=== PATIENT | male | born 1995 | race Caucasian/White ===

== ENCOUNTER → 2025-06-02 15:10 | Outpatient (REF) | payer MEDICARE, OTHER, SELFPAY | LOC: HWRAD 15:10 | PROVIDERS: ATTENDING PHYSICIAN Nurse Practitioner Family | DX: M25.562 Pain in left knee (principal); L03.90 Cellulitis, unspecified | CPT/HCPCS: 73564 ==

== ENCOUNTER 2025-06-08 19:59 | Inpatient (IN) | payer MEDICARE, OTHER, SELFPAY ==
[2025-06-08 16:17] VITALS: BP 155/97
[2025-06-08 16:35] LABS: Hematocrit 39.9 % (39.0-52.0); Hemoglobin 13.4 g/dL (13.0-18.0); Mean Corp Hgb Conc. 33.6 g/dL (33.0-37.0); Mean Corpuscular Volume 85.3 fL (80.0-94.0); Nucleated Red Blood Cells % 0 % (-); Platelet Count 318 10^3/uL (130-400); Red Cell Dist. Width 13.0 % (11.5-14.5)
[2025-06-08 16:49] LABS: ALT (SGPT) 53 U/L (0-50); AST (SGOT) 36 U/L (17-59); Albumin 4.0 g/dl (3.5-5.0); Alkaline Phosphatase 57 U/L (38-126); Blood Urea Nitrogen 11 mg/dl (9-20); Calcium 9.5 mg/dl (8.4-10.2); Carbon Dioxide 27 mmol/L (22-30); Chloride 106 mmol/L (98-107); Glucose 112 mg/dl (70-99); Potassium 4.1 mmol/L (3.5-5.1); Sodium 139 mmol/L (135-145); Total Protein 6.9 g/dl (6.3-8.2); eGFR > 60.00
[2025-06-08 18:20] VITALS: BP 136/88
--- NOTE | 2025-06-08 18:30 | ED.GENMED ---
History of Present Illness
General
Chief Complaint: DVT/Possible Blood Clot
Source: patient and family
Exam Limitations: none
Time Seen by Provider: 06/08/25 18:16
Nursing documentation reviewed up to this point in time: agreed with
History of Present Illness
History of Present Illness:
30-year-old male with a past medical history of cerebral palsy, prior right AKA who presents to the emergency room with his family for evaluation of left leg pain and swelling. Patient reports symptoms have been progressive over the past 7 to 10
days. Sounds like he has been on antibiotics for presumed cellulitis of the leg (he has apparently had cellulitis in this leg before) but symptoms were actually worsening which prompted ER visit today. In addition to the swelling, redness and pain
in the left leg he has also experienced some increased shortness of breath recently. He denies any chest pain. He denies any other acute issues. He does have history of 'blood clot in his right leg' after a complicated surgery that ultimately
required amputation but family says that he had extensive hypercoagulable workup at the time and was told that he did not have any propensity for clots and is not on any blood thinners.
Past History
Past History
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
ED Past Surgical History: Orthopedic (R AKA s/p tendon release surgery where [employer] was severed in 1997 at [place])
Social History
Tobacco: Non-smoker
Review of Systems
Review of Systems
All Other Systems: ROS reviewed and negative except as documented in HPI and ROS
Constitutional: Denies fever
Respiratory: Reports trouble breathing
Cardiac: Denies chest pain
ABD/GI: Denies abdominal pain, bloody stools or black stools
: Denies flank pain
Musculoskeletal: Reports muscle pain and edema
Neurological: Denies dizzy or headache
Phy Exam
Physical Exam
Physical Exam:
General: Awake, alert, oriented x3; no acute distress
Head: Normocephalic, atraumatic
Eyes: Conjunctiva normal
Throat: Airway intact, handling secretions
Neck: Trachea midline, supple without meningismus
Lungs: Clear to auscultation bilaterally, no wheezing, rales, rhonchi
Heart: Tachycardia with regular rhythm, no murmurs, gallops, or rubs
Abd: Soft, non distended, nontender
Skin: Patient has erythema of the entire left lower leg, most notably in the left thigh which is somewhat mottled and purpleish
Extremities: Patient has right AKA; left lower extremity edematous, discolored, warm to the touch, diffusely tender; palpable distal pulse in the leg (pictured below)
Scores
Heart Failure Risk
Heart Failure Risk Score: Not Applicable
Heart Score for Chest Pain Patients
STEMI patient?: Not applicable
Withdrawal Assessment of Alcohol
Withdrawal Assessment Completed?: Not applicable
Course
Orders/Labs/Results
Orders:
Orders
06/08/25 16:16
Periph Venous Lwr Ext Left US [US Periph Venous LOWER Ext LT] Urgent
Comment:
Reason For Exam: swelling
06/08/25 16:25
Complete Blood Count/With Diff Urgent
Comprehensive Metabolic Panel Urgent
06/08/25 18:11
Electrocardiogram (*1) Urgent
Reason for Study: Bradycardia / Tachycardia
EKG- Treatment ONCE
Vital Signs- Treatment ONCE
Frequency: Once
Comment: WEIGHT
06/08/25 18:24
CT Pe/abd/pel W Urgent
Comment:
Reason For Exam: sob, large DVT
06/08/25 18:29
Consult Vascular Surgery [Vascular Surgery Consult] Urgent
Consulting Provider: Cali Burnett
Was physician already notified: Yes
06/08/25 18:33
PTT Urgent
Prothrombin Time Urgent
06/08/25 18:34
Heparin 5,100 units IV NOW STA
Nursing to Place Non Medication Order As Directed
Physician Order: PTT 6 hours after initial start of Heparin infusion
06/08/25 18:45
Heparin 41110 Units/250 ml 25,000 units in 250 ml IV PER PROTOCOL
Weight to be used for heparin protocol in kilograms (kg):: 63.503
Protocol:: DVT/PE
PTT Goal Range to be used:: PTT 73 to 111 seconds
Order type:: Initial
INITIAL Infusion Dose (UNITS/KG/hr) & then follow protocol:: 18 units/kg/hr
Infusion Dose in UNITS/hr & then follow protocol (UNITS/hr):: 1,100
INFUSION RATE in mL/hr & then follow protocol (mL/hr):: 11
For DVT/PE algorithm, re-bolus for low PTT?: Yes
PTT less than or equal to 64 seconds:: Re-bolus 80 units/kg (max 10,000units). Increase by 300 units/hr
(+ 3mL/hr)
PTT 64.1 to 72.9 seconds:: Re-bolus 40 units/kg (max 5,000 units). Increase by 100 units/hr
(+ 1mL/hr)
PTT 73 to 111 seconds:: Target Range. No change in rate.
PTT 111.1 to 130.9 seconds:: Decrease rate by 100 units/hr (- 1 mL/hr)
PTT 131 to 199.9 seconds:: HOLD for 1 hr. Then decrease by 200 units/hr (- 2mL/hr)
PTT greater than or equal to 200 seconds:: HOLD for 2 hrs & Notify Provider. Then decrease by 300 units/hr
(- 3mL/hr)
Lab follow-up:: Each change, PTT q6h until 2 consecutive are therapeutic. Then
PTT daily.
06/08/25 19:04
Heparin 5,100 units IV PRN PRN
06/08/25 19:05
Heparin 2,500 units IV PRN PRN
06/08/25 19:18
Admit/Transfer Patient As Directed
Co-Sign Provider:
Level of Care: Inpatient admission
Assign to:: Medical/Surgical
Physician / Group: shelbie
Diagnosis: DVT
Reason for Hospitalization: extensive LLE DVT
Expected length of stay greater than two midnights?: Yes
ELOS- Estimated Length of Stay in days: 2
I certify the patient meets the requirements for IP care: Yes
PRN Pain Medication Management As Directed
May give lesser potent ordered pain med per pt: Yes
preference::
Protocol:: Medication orders for pain may be administered in a
manner that supports deferring to patient preference
when the pt is:
- Requesting an ordered lesser potent pain medication.
Least to most potent pain medications are defined
as: acetaminophen < NSAID < tramadol < opioids
(morphine, oxycodone, hydromorphone).
- Requesting a lesser dose of the same medication IF
ORDERED.
- Requesting a less intrusive route of administration
if both routes are prescribed by the provider (PO <
IV).
06/08/25 19:19
Code Status As Directed
Resuscitation Status: Full Code
Abnormal Lab Results
06/08/25
16:25
RBC 4.68 L 10^6/uL
(4.70-6.10)
Absolute Monos (auto) 0.8 H 10^3/uL
(0.1-0.6)
Lymphocytes % 16.9 L %
(20.5-51.1)
Monocytes % 9.5 H %
(1.7-9.3)
Glucose 112 H mg/dl
(70-99)
ALT 53 H U/L
(0-50)
06/08/25 16:25
06/08/25 16:25
Vital Signs
Initial and Last Documented VS:
Initial Vital Signs
Temp Pulse Resp BP Pulse Ox
36.6 C 121 18 155/97 97
06/08/25 16:17 06/08/25 16:17 06/08/25 16:17 06/08/25 16:17 06/08/25 16:17
Last Documented Vital Signs
Temp Pulse Resp BP Pulse Ox
36.6 C 123 25 118/86 97
06/08/25 16:17 06/08/25 19:15 06/08/25 19:15 06/08/25 19:15 06/08/25 18:34
MDM/Problems Addressed
Differential Diagnosis Includes:
Leg swelling: DVT, cellulitis, vasculitis
MDM/Problems Addressed:
30-year-old male with history as noted presents for evaluation of left leg pain and swelling progressive over the past 7 to 10 days. Has also had some shortness of breath recently. He is hypertensive and tachycardic but not tachypneic or hypoxic.
Physical exam is as above. He had labs and imaging done in triage including a CBC and a CMP which showed no clinically significant abnormalities. His ultrasound of the left lower extremity unfortunately showed extensive left lower extremity DVT
extending all the way to the iliac veins. Patient was immediately brought back to her room and placed on surveillance monitor, IV access established. Given his reported symptom of shortness of breath and marked tachycardia we will send for a CT PE as
well as a CT venogram to better visualize proximal vasculature in the pelvis. Case was discussed with vascular surgery regarding extensive DVT, plan for OR tomorrow for thrombolysis, n.p.o. at midnight. Will start empirically on heparin infusion
pending imaging. Will plan for admission pending CT. Discussed at length with patient and family regarding diagnosis and treatment plan
CT somewhat limited but no clear PE. CT venogram does show extensive proximal clot. N.p.o. at midnight for vascular consultation in the morning. Heparin in progress. Patient stable on reassessment. Discussed with hospitalist for admission.
*Radiology
Radiology exam reviewed: radiology read reviewed
*Pulse Oximetry
SaO2: 97
Oxygen Mode of Delivery: Room air
Patient hypoxic: no (97%)
*EKG
Interpreted by ED Provider?: Yes
Heart Rate: 121
Rate: tachycardiac
Rhythm: sinus and sinus tachycardia
[place]: normal axis
Interval: normal interval
QRS Pattern: normal QRS
Ischemia: no ischemia
*Critical Care Note
Total Time (30-74mins, 75-104mins- exclusive of procedures): 32
comment:
Critical care statement: A total of 32 minutes of critical care time was provided for this patient. This includes management of unstable vital signs, evaluation of the patient at bedside, frequent reassessment, discussion with
consultants/hospitalist, and review of pertinent medical records. This time was separate from time utilized to perform any aforementioned documented procedures
Data Reviewed
Review of Other/Old Records Reveals: Labs and Records
Source: patient and family
Patient Management
Discussion with other providers: Hospitalist (Discussed with hospitalist) and Computer Systems Design Analyst (Discussed with vascular surgery)
Escalation/DeEscalation of care consider admission/obs:
Admission indicated
ED Attending Note
-
Portions of this chart may have been created with voice recognition software.� Occasional wrong word or��sound alike� substitutions may have occurred due to the inherent limitations of voice recognition software.
Discharge Plan
Departure
Patient Disposition: Admit
Date of Disposition: 06/08/25
Time of Disposition: 19:12
Admit to doctor: Shelbie
Presentation/result/management discussed w/ accepting MD/DO: Hospitalist
Discharge Problem:
DVT (deep venous thrombosis)
Interventions
Interventions:
*Risk Screen - Suicide Last Done: 06/08/25 16:17
*General Assessment Last Done: 06/08/25 16:17
*Neglect/Abuse Screening Last Done: 06/08/25 18:36
*ED- Fall Risk Assessment Last Done: 06/08/25 16:17
*ED COVID-19 Vaccine History Last Done: 06/08/25 16:17
*ED Influenza Vaccine History Last Done: 06/08/25 16:17
ED- Cardiac Assessment Last Done: 06/08/25 18:34
ED- Pulmonary Assessment Last Done: 06/08/25 18:34
ED-Peripheral Vascular Assessment Last Done: 06/08/25 18:35
ED-Skin Assessment Last Done: 06/08/25 18:35
[2025-06-08 18:31] VITALS: BMI 28.3
[2025-06-08 18:56] LABS: INR 1.05; PT 14.2 Sec (11.4-14.6)
[2025-06-08 18:57] LABS: APTT 28.4 Sec (23.4-35.0)
[2025-06-08] MEDS: HEPARIN 5100 UNITS IV (19:09)
[2025-06-08] MEDS: HEPARIN 25000 UNITS/250 ML IV (19:10)
[2025-06-08 19:15] VITALS: BP 118/86
--- NOTE | 2025-06-08 19:16 | HPS.HSE ---
Family Physician
-
Family Physician: * NONE
Chief Complaint
-
Leg swelling
History of Present Illness
This is a 30-year-old male with past medical history significant for cerebral palsy, bipolar disorder, status post right above-knee amputation who presents to the emergency department with swelling and edema to left lower extremity.
Family reported that the patient developed a cellulitis of the left knee about 2 weeks ago. He started antibiotics 1 week ago. Despite antibiotics family reported increased swelling in the left lower extremity. Did not read the patient has had
decreased movement (they reported that he has been very sedentary since the cellulitis). Usually ambulates with a prosthesis but patient has not been using it recently.
He had a friend blood clot during first year of life which resulted in amputation. He had a genetic testing at that time and was negative. He has not had any clotting episodes since then.
Intermittent leg pain patient was afebrile, blood pressure was 136/78 with a pulse rate of 120 and was satting 97% on room air. ECG showed sinus tachycardia at rate of 121.
CBC was unremarkable, electrolyte BUN/creatinine were all normal.
Patient peripheral ultrasound showing extensive left lower extremity DVT occlusive. CT PE was negative. CT venogram of the abdomen pelvis was also negative.
Medical History
Past Medical History
Past Medical History: Reports Other
Additional Past Medical History:
Cerebral palsy
Hypothyroid�recovered
astigmatism
Past Surgical History: Reports Orthopedic (Right above-knee amputation) and Other
Additional Past Surgical History:
Hernia repair
Okay ectomy
Abductor tendon release with femoral artery cut
Social History
Tobacco: Non-smoker
Alcohol: None
Drug: None
Personal: Single
Living: With Family
Employment: Disabled
Family History
Family History: Not pertinent
Allergies / Home Medications
Allergies reflects when Allergies were last updated in [employer].
Home Medications with original date entered in [employer]
Allergy/Medication List:
Allergies
Allergy/AdvReac Type Severity Reaction Status Date / Time
No Known Allergies Allergy Verified 06/08/25 16:19
Home Medications
cephalexin 500 mg capsule 500 mg PO QID 06/08/25
cholecalciferol (vitamin D3) 25 mcg (1,000 unit) tablet (Vitamin D3) 25 mcg PO DAILY 06/08/25
divalproex 250 mg tablet,delayed release (Depakote) 250 mg PO HS 06/08/25
ibuprofen 400 mg tablet 400 mg PO DAILYPRN PRN mild pain 06/08/25
lorazepam 0.5 mg tablet 0.5 mg PO Q48H 06/08/25
lorazepam 0.5 mg tablet 1 mg PO HS 06/08/25
paliperidone 3 mg tablet,extended release 24 hr 6 mg PO HS 06/08/25
therapeutic multivitamin 1 tab PO DAILY 06/08/25
Review of Systems
-
Constitutional: Reports No Symptoms
EENT: Reports No Symptoms
Respiratory: Reports No Symptoms
Cardiac: Reports No Symptoms
Abdomen/GI: Reports No Symptoms
: Reports No Symptoms
Musculoskeletal: Reports Joint Swelling and Edema
Skin: Reports No Symptoms
Neurological: Reports No Symptoms
Endocrine: Reports No Symptoms
Hematologic/Lymphatic: Reports No Symptoms
Psych: Reports No Symptoms
Physical Exam
Vital Signs
Vital Signs
Temp Pulse Resp BP Pulse Ox
97.9 F 126 16 136/88 97
06/08/25 16:17 06/08/25 18:21 06/08/25 18:31 06/08/25 18:20 06/08/25 18:34
Physical Exam
General: Well Developed, Well Nourished and No Apparent Distress
HEENT: NormoCephalic, Moist mucous membranes and Atraumatic
Respiratory: Clear
Cardiac: S1/S2, Regular Rhythm and Tachycardia; No Murmur or Rub
GI: Soft, Non Tender, Non Distended and Normal Bowel Sounds; No Organomegaly
Rectal: Deferred by Provider
Musculoskeletal: No Clubbing, No Cyanosis, Edema, Left Lower Extremity and Other (Right AKA)
Skin: No Rash
Neuro: Nonfocal/grossly intact
Laboratory Results
-
06/08/25 16:25
06/08/25 16:25
Laboratory Results
PT 14.2 Sec (11.4-14.6) 06/08/25 18:33
INR 1.05 06/08/25 18:33
APTT 28.4 Sec (23.4-35.0) 06/08/25 18:33
Total Bilirubin 0.7 mg/dl (0.2-1.3) 06/08/25 16:25
AST 36 U/L (17-59) 06/08/25 16:25
ALT 53 U/L (0-50) H 06/08/25 16:25
Alkaline Phosphatase 57 U/L (38-126) 06/08/25 16:25
Data Reviewed
-
CT Scan: Report Reviewed by me
Ultrasound: Report Reviewed by me
Medical Tests (Nuc Med, Echo, EKG etc): Image Personally Visualized and interpreted
Lab Data: Labs Reviewed by me
Old Records: Reviewed
Impression/Plan
-
IMPRESSION:
30-year-old with past medical history significant for cerebral palsy and bipolar disorder who presents to the emergency department with swelling of the left lower extremity in the setting of being treated for cellulitis. Parents report that patient
has been severely immobile during the last 1 to 2 weeks due to cellulitis of the left knee. Father did have a history of DVT/PE. Patient had a history of clots of the right femoral artery status post amputation. Patient reportedly had genetic
testing at a time of which was negative.
PLAN:
Extensive DVT -occlusive DVT with edema. Pulses were intact. No PE. No intraabdominal thrombus.
-Admit to [facility]
-N.p.o. after midnight
-Continue heparin drip
-Pain control
-Vascular surgery consulted and taken patient to the OR in a.m.
-History of prior negative workup for hypercoagulable state
-Suspect provoked in the setting of the cellulitis and severe immobilization with known amputation on the right. Likely will need indefinite anticoagulation
-Continue Keflex
Cerebral palsy
- Continue divalproex
-Continue paliperidone
-Continue lorazepam
CODE STATUS�full code
[2025-06-08 20:00] VITALS: BP 129/81
[2025-06-08 21:04] VITALS: BP 148/90; BMI 29.1
[2025-06-08] MEDS: ATIVAN 1 MG PO (21:51)
[2025-06-08] MEDS: DEPAKOTE (12 HR RELEASE) 250 MG PO (21:51)
[2025-06-08] MEDS: KEFLEX 500 MG PO (21:51)
[2025-06-08 23:08] VITALS: BP 130/87
[2025-06-08] MEDS: NON-FORMULARY ITEM 6 MG PO (23:28)
[2025-06-09 01:35] LABS: APTT 68.5 Sec (23.4-35.0)
[2025-06-09] MEDS: HEPARIN 2500 UNITS IV (01:48)
--- NOTE | 2025-06-09 07:14 | W.PN.HOSP.TC ---
Addendum entered and electronically signed by Angi Adam MD 06/09/25 14:06:
Seen and examined the patient independently, plan formulated together agree with residents plan.
30-year-old with history of cerebral palsy, bipolar disorder, history of right AKA admitted with swelling and edema of left lower extremity. He developed cellulitis 2 weeks ago and was started on antibiotics despite that swelling increased.. Has
been sedentary since cellulitis started usually ambulates with a prosthesis.
CT abdomen and pelvis-evaluation for PE is significantly limited. No gross evidence of PE. Trace amount of posterior pleural fluid bilaterally. Mild dependent atelectasis in the posterior lungs. Thrombus in the left common femoral, proximal
femoral, profunda femoris veins. Thrombus also extends into the left external iliac vein and into the left internal iliac vein. There is severely atrophic left common iliac vein as well as IVC. Severely artery right take right common femoral,
external iliac and common iliac veins. Normal caliber of the IVC at the level of renal veins no thrombus. Urinary bladder is elongated. Seminal vesicles are enlarged.
Ultrasound-extensive DVT of the left lower extremity and extensive thrombus in the left external iliac vein
EKG-sinus tachycardia
Patient was awake and alert
Cardiovascular system S1-S2 appreciated
Chest clear to auscultation
Abdomen soft and nontender
Right BKA
Extremity Wilfredo bandage
# Extensive left lower extremity DVT
Currently on heparin drip, will transition to Lovenox
Vascular surgery evaluated-no surgery secondary to complex anatomy
Likely provoked in the setting of immobilization and cellulitis
Will need outpatient follow-up with hematology oncology also
Continue Keflex to treat cellulitis
Eventual switch to NOACs
Case management to check pricing for Eliquis/Xarelto.
Discussed about Coumadin and NOACs with mother she prefers NOACs.
# Cerebral palsy, born at 26 weeks
# History of right BKA at age 28 months for femoral artery injury while attempting tendon release for CP, with attempted repair but failed
# Kyphosis of the lower thoracic spine
# Bipolar disease/anxiety-continue Depakote, lorazepam, paliperidone
# Ambulatory dysfunction and uses prosthesis and a special walker
# Full code
Discussed with nursing
D/W Mom at bed side. Mom asking a bathroom with wider door to get his walker through. Communicated with staff.
Part of this note was created using voice recognition system. Occasional wrong word or��sound alike� substitutions may have inadvertently occurred due to the inherent limitations of voice recognition software. If noted kindly bring it to my
attention for correction.
Original Note:
Today's Communication/Plan
-
STOP Heparin
START Lovenox
Assessment / Plan
Assessment / Plan
Assessment:
Plan:
Extensive Occlusive DVT of the left lower extremity
-As noted on Peripheral Vascular Ultrasound on 06/08: Extensive deep venous thrombosis of the left lower extremity as described. There is also extension of occlusive thrombus in the visualized left external iliac vein.
-CT Abdomen/Pelvis on 06/08: Evaluation for pulmonary embolism is significantly limited by respiratory motion artifact. Even evaluation of the central pulmonary arteries is limited, with no gross evidence for embolism. Thrombus involving the left
common femoral, proximal femoral, and profunda femoris veins. Thrombus also extends into the left external iliac vein and into the left internal iliac vein. There is a severely atrophic left common iliac vein as well as the infrarenal IVC. Severely
atretic right common femoral, external iliac, and common iliac veins. Normal caliber of the IVC at the level the renal veins and above, with no evidence for thrombus. Geographic region of decreased density involving the anterior medial segment of
the liver on portal venous phase images, most likely a benign perfusion anomaly. No CT evidence for branch portal vein thrombus.
-Vascular surgery consulted by the admitting team, at this time no plans for surgical intervention
-Resumed Diet today
-STOP Heparin, start Lovenox 65mg BID with plans to switch to oral anticoagulation. Placed consult to CM to danny Morgan
-Per prior notes, it seems patient may have had a hypercoaguable workup in childhood. Would recommend follow up with hematology outpatient given new extensive DVT.
Cerebral Palsy
-CT of the Abdomen/Pelvis on 06/08: Urinary bladder is elongated in the craniocaudal dimension and the urinary bladder is in the anterior pelvis. Seminal vesicles are enlarged. These are likely sequela of chronic cerebral palsy.
-Continue outpatient follow up
Bipolar Disorder
-Continue outpatient follow up
-Continue home meds (Depakote, Lorazepam, Paliperidone)
S/p Right [id number]
-In childhood due to blood clot, patient with history of negative workup for hypercoagulable state
Anticipated Discharge: 24 - 48 hours
Subjective/Interval History
-
Date of Service: June 09, 2025
Patient was resting in his room when I arrived. He states he has not felt any pain in his left leg recently, and does not remember having any fevers, chills, or shortness of breath. He was curious if his parents would be stopping by later today to
visit him. He had no questions, concerns, or complaints at this time.
Objective Data
-
Labs:
Laboratory Results
06/09/25 06/09/25 06/09/25
01:12 06:00 08:00
WBC Pending
Hgb Pending
Hct Pending
Plt Count Pending
APTT 68.5 H Pending
Sodium Pending
Potassium Pending
Chloride Pending
Carbon Dioxide Pending
BUN Pending
Creatinine Pending
Glucose Pending
Calcium Pending
Vital Signs:
Vital Signs
Temp Pulse Resp BP Pulse Ox
99.1 F 118 18 130/87 98
06/08/25 23:08 06/08/25 23:08 06/08/25 23:08 06/08/25 23:08 06/08/25 23:08
Review of Systems
-
History Source: Patient
Constitutional: Denies Fever or Chills
Respiratory: Denies Trouble Breathing
Cardiac: Denies Chest Pain
Musculoskeletal: Denies Joint Pain or Muscle Pain
Physical Exam
-
General: Well Developed, Well Nourished, No Apparent Distress and Comfortable
HEENT: Normocephalic and Atraumatic
Respiratory: Clear to Auscultation
Cardiac: Regular Rhythm and S1/S2
Musculoskeletal: Other (Right knee status post above the knee amputation with well healed surgical scar, no signs of infection. )
Skin: Warm and Dry
Neuro: Awake, Alert and Oriented
Psych: Calm
[2025-06-09 08:04] VITALS: BP 130/80
[2025-06-09] MEDS: VITAMIN D3 (cholecalciferol) 25 MCG PO (08:15)
[2025-06-09] MEDS: KEFLEX 500 MG PO ×4 (08:15→21:29)
[2025-06-09 08:39] LABS: APTT 89.5 Sec (23.4-35.0)
[2025-06-09 08:48] LABS: Hematocrit 37.3 % (39.0-52.0); Hemoglobin 12.5 g/dL (13.0-18.0); Mean Corp Hgb Conc. 33.5 g/dL (33.0-37.0); Mean Corpuscular Volume 85.4 fL (80.0-94.0); Platelet Count 313 10^3/uL (130-400); Red Cell Dist. Width 12.9 % (11.5-14.5)
--- NOTE | 2025-06-09 09:12 | CON.VAS ---
Consultation
Consultation Request
Date/Time Consultation Performed: 06/09/2025 8 AM
Performing Provider: Lex
Reason for Consultation: DVT
Medical History
-
Chief Complaint: Left leg swelling/redness
History of Present Illness:
30-year-old male with past medical history significant for cerebral palsy, bipolar disorder, right AKA in 1995 who presented to the emergency room on 06/08/2025 for 2 weeks of left knee cellulitis. 1 week ago he was put on antibiotics by his PCP
despite this the swelling and redness persisted leading to this admission. Venous ultrasound in the emergency room suggests left lower extremity DVT. CTA PE study negative. CT venogram suggests 'thrombus involving the left common femoral,
proximal femoral, and profunda femoris veins. Thrombus also extends into the left external iliac vein and into the left internal iliac vein. There is a severely atrophic left common iliac vein as well as the infrarenal IVC. Severely atretic right
common femoral, external iliac, and common iliac veins. Normal caliber of the IVC at the level the renal veins and above, with no evidence for thrombus.'
Patient had DVT at 2 years old following surgical procedure. No clotting episodes since then. Had genetic testing at that time which was negative. Denies recent travel.
Vascular consult for evaluation of DVT. Patient seen at bedside this a.m. with Dr. Burnett.
Past Medical History
Past Medical History: Psychiatric (Bipolar, schizophrenia) and Other (Cerebral palsy, hypothyroid, astigmatism)
Past Surgical History: Orthopedic (Right AKA 1995, hernia repair)
Social History
Tobacco: Non-Smoker
Alcohol: None
Drug: None
Personal: Single
Living: With Family
Employment: Disabled
Family History
Family History: Reviewed & Not Pertinent
Allergies / Home Medications
Allergy/AdvReac Type Severity Reaction Status Date / Time
No Known Allergies Allergy Verified 06/08/25 16:19
�Medication �Instructions �Recorded �Confirmed �Type
cephalexin 500 mg capsule 500 mg PO QID Infection 06/08/25 06/08/25 History
cholecalciferol (vitamin D3) 25 25 mcg PO DAILY Supplement 06/08/25 06/08/25 History
mcg (1,000 unit) tablet (Vitamin
D3)
divalproex 250 mg tablet,delayed 250 mg PO HS Seizures 06/08/25 06/08/25 History
release (Depakote)
ibuprofen 400 mg tablet 400 mg PO DAILYPRN PRN mild pain 06/08/25 06/08/25 History
lorazepam 0.5 mg tablet 0.5 mg PO Q48H Mental 06/08/25 06/08/25 History
Health/Anxiety
lorazepam 0.5 mg tablet 1 mg PO HS Mental Health/Anxiety 06/08/25 06/08/25 History
paliperidone 3 mg tablet,extended 6 mg PO HS Mental Health/Anxiety 06/08/25 06/08/25 History
release 24 hr
therapeutic multivitamin 1 tab PO DAILY Supplement 06/08/25 06/08/25 History
Review of Systems
-
History Source: Patient
All other systems: Negative unless noted
Constitutional: Reports No Symptoms
EENT: Reports No Symptoms
Respiratory: Reports No Symptoms
Cardiac: Reports No Symptoms
Vascular: Reports Leg Pain / Claudication
Abdomen/GI: Reports No Symptoms
: Reports No Symptoms
Musculoskeletal: Reports Muscle Stiffness and Edema
Skin: Reports Other (Left lower extremity redness)
Neurological: Reports No Symptoms
Physical Exam
Vital Signs
Temp Pulse Resp BP Pulse Ox
98.4 F 103 16 130/80 94
06/09/25 08:04 06/09/25 08:04 06/09/25 08:04 06/09/25 08:04 06/09/25 08:04
Lab Results
06/09/25 07:52
Physical Exam
General: No Apparent Distress
HEENT: Normocephalic and Atraumatic
Respiratory: Non Labored Respirations
Cardiac: Negative JVD
GI: Soft
Musculoskeletal: No Clubbing, No Cyanosis and Edema (Left lower extremity)
Skin: Warm and Other (Erythema to the left thigh)
Neuro: Awake, Alert and Oriented
Psych: Calm
Assessment / Plan
-
30-year-old male here with DVT
Plan:
No vascular intervention required at this time
Agree with heparin, and eventual p.o. anticoagulation at DC
Wilfredo wrap/compression and elevation as tolerated
Data Reviewed
-
CT Scan: Discussed with Patient
Ultrasound: Discussed with Patient
Labs: Labs Reviewed by me
[2025-06-09 09:34] LABS: Blood Urea Nitrogen 10 mg/dl (9-20); Calcium 9.1 mg/dl (8.4-10.2); Carbon Dioxide 27 mmol/L (22-30); Chloride 107 mmol/L (98-107); Estimated Creatinine Clearance 121 ml/min; Glucose 95 mg/dl (70-99); Magnesium 2.1 mg/dl (1.6-2.3); Potassium 4.2 mmol/L (3.5-5.1); Sodium 140 mmol/L (135-145); eGFR > 60.00
--- NOTE | 2025-06-09 09:38 | W.PN.UPDATE ---
Update Note
Progress Note Update
Seen and evaluated with [facility]. Full consultation to follow. Briefly a 30-year-old male with history of CP, schizophrenia, right [id number] amputation at age of 28 months (underwent tendon release for CP, femoral artery and vein injury noted,
attempted repair but failed). Now patient with at least 10 days of left lower extremity redness and some discomfort. Although currently he denies any pain. Per his father who is at the bedside and relayed some of the history, it began as a
cellulitic process. Patient was started on antibiotics by his primary care doctor. Of note the symptoms started greater than 10 days ago per his father. Then over the last couple days noted increasing swelling. The father was attuned to the
symptoms as he had suffered a PE himself in the past. (Provoked PE following a period when he was mostly nonambulatory due to significant back related issues and spinal injections). Patient's father notes that he had genetic testing which was
negative for any hypercoagulable disorder. Patient has never had prior venous thromboses that he is aware of. His ambulation is somewhat limited due to the right AKA and CP status. However he does somewhat crawl around.
As noted patient is without any complaints of pain or weakness currently in his leg.
On exam/he is awake and alert. Breathing is unlabored. Left lower extremity thigh and calf are swollen, but soft. Compartments all soft. No phlegmasia. Foot is warm.
Duplex reviewed. Extensive left lower extremity DVT including occlusive thrombus in the common femoral vein extending into the external iliac vein.
CT venogram reviewed the images personally myself. He has thrombus through the external iliac vein. However his common iliac vein and IVC are what appeared to be congenitally atretic. The external iliac drains into the internal iliac vein which
is thrombosed as well. There does appear to be another collateral from the external iliac vein more proximally that is completely flattened or atretic in and of itself and seems to connect then to a larger collateral that does opacify but is very
tortuous and then drains into the left renal vein.
Plan/ Acute/subacute left lower extremity extensive DVT including iliofemoral component. However, complex anatomy including atretic common iliac vein and IVC (see my note of CT interpretation above). Discussed with patient and his father therefore
that thrombolysis/mechanical thrombectomy may be significantly limited and may be more harmful in this setting as there is not a good outflow pathway to reestablish. Discussed that the symptoms are relatively mild currently. No phlegmasia. Based
on all this, I would recommend conservative management with anticoagulation and compression as opposed to invasive therapy (mainly driven by the anatomy findings). Patient and his father were appreciative. We will sign off. Please call with
questions.
[2025-06-09 10:02] LABS: ALT (SGPT) 59 U/L (0-50); AST (SGOT) 32 U/L (17-59); Albumin 3.6 g/dl (3.5-5.0); Alkaline Phosphatase 56 U/L (38-126); Total Protein 6.1 g/dl (6.3-8.2)
[2025-06-09] MEDS: LOVENOX 70 MG SC ×2 (12:16→23:02)
[2025-06-09 15:09] VITALS: BP 123/82
--- NOTE | 2025-06-09 17:19 | CM ---
Patient seen at bedside with his dad Good and patient's twin sister Coreen
IA completed
Dx: LLE DVT
PMH: cerebral palsy, bipolar disorder, right above-knee amputation at age 28 mos
Patient lives with his parents and twin sister in a multi-story home, resides in 1st floor addition, with bedroom and handicapped bathroom.
PLOF: uses a specialized walker, has braces, prostetic
DME: Wheelchair, specialized walker
has had therapy as a child, denies SNF
confirmed insurance with dad
CM consult for pricing of Eliquis - Called Pharmacist Juan at [facility] and he gave CM [employer] # - CM unable to get through to [employer] (member #[id number]) - dad has an osmel on phone medicare.gov with patient's rx & stated that
Eliquis would cost approximately $50/mo - tt hospitalist
PCP: Brian Walls [facility]
Pharmacy: [facility]
PLAN: Home with family, no needs
[2025-06-09] MEDS: NON-FORMULARY ITEM 6 MG PO (20:30)
[2025-06-09] MEDS: ATIVAN 1 MG PO (21:29)
[2025-06-09] MEDS: DEPAKOTE (12 HR RELEASE) 250 MG PO (21:29)
[2025-06-09 23:00] VITALS: BP 125/86
--- NOTE | 2025-06-10 07:16 | W.PN.HOSP.TC ---
Addendum entered and electronically signed by Angi Adam MD 06/10/25 12:36:
Seen and examined the patient independently, plan formulated together agree with residents plan.
30-year-old with history of cerebral palsy, bipolar disorder, history of right AKA admitted with swelling and edema of left lower extremity. He developed cellulitis 2 weeks ago and was started on antibiotics despite that swelling increased.. Has
been sedentary since cellulitis started usually ambulates with a prosthesis.
CT abdomen and pelvis-evaluation for PE is significantly limited. No gross evidence of PE. Trace amount of posterior pleural fluid bilaterally. Mild dependent atelectasis in the posterior lungs. Thrombus in the left common femoral, proximal
femoral, profunda femoris veins. Thrombus also extends into the left external iliac vein and into the left internal iliac vein. There is severely atrophic left common iliac vein as well as IVC. Severely artery right take right common femoral,
external iliac and common iliac veins. Normal caliber of the IVC at the level of renal veins no thrombus. Urinary bladder is elongated. Seminal vesicles are enlarged.
Ultrasound-extensive DVT of the left lower extremity and extensive thrombus in the left external iliac vein
EKG-sinus tachycardia
Patient was awake and alert
Cardiovascular system S1-S2 appreciated, not tachy
Chest clear to auscultation
Abdomen soft and nontender
Right BKA
Left edema much better in the distal, mild edema thigh
# Extensive left lower extremity DVT
Vascular surgery evaluated-no surgery secondary to complex anatomy
Likely provoked in the setting of immobilization and cellulitis
Will need outpatient follow-up with hematology oncology also
Can stop Keflex
Switched to Eliquis
# Cerebral palsy, born at 26 weeks
# History of right BKA at age 28 months for femoral artery injury while attempting tendon release for CP, with attempted repair but failed
# Kyphosis of the lower thoracic spine
# Bipolar disease/anxiety-continue Depakote, lorazepam, paliperidone
# Ambulatory dysfunction and uses prosthesis and a special walker
# Full code
Discussed with nursing
D/W Mom at bed side.
Patient's father looked up the pricing for anticoagulants, Eliquis was $50 they can afford it.
Discussed with case management
More than 30 minutes spent in discharge including
Final examination of the patient
Summarizing hospital stay
Instructions for continuing care to all relevant caregivers
Preparation of discharge records, prescriptions, and referral forms
Part of this note was created using voice recognition system. Occasional wrong word or��sound alike� substitutions may have inadvertently occurred due to the inherent limitations of voice recognition software. If noted kindly bring it to my
attention for correction.
Original Note:
Today's Communication/Plan
-
Discharge planning
Switch anticoagulant to Eliquis
Assessment / Plan
Assessment / Plan
Assessment:
This is a 30 y/o male with pmhx of cerebral palsy, bipolar disorder, and history of right above-knee amputation who presented to the ED on 06/08/2025 with swelling and edema of the left lower extremity due to DVT
Plan:
Extensive Occlusive DVT of the left lower extremity
-As noted on Peripheral Vascular Ultrasound on 06/08: Extensive deep venous thrombosis of the left lower extremity as described. There is also extension of occlusive thrombus in the visualized left external iliac vein.
-CT Abdomen/Pelvis on 06/08: Evaluation for pulmonary embolism is significantly limited by respiratory motion artifact. Even evaluation of the central pulmonary arteries is limited, with no gross evidence for embolism. Thrombus involving the left
common femoral, proximal femoral, and profunda femoris veins. Thrombus also extends into the left external iliac vein and into the left internal iliac vein. There is a severely atrophic left common iliac vein as well as the infrarenal IVC. Severely
atretic right common femoral, external iliac, and common iliac veins. Normal caliber of the IVC at the level the renal veins and above, with no evidence for thrombus. Geographic region of decreased density involving the anterior medial segment of
the liver on portal venous phase images, most likely a benign perfusion anomaly. No CT evidence for branch portal vein thrombus.
-Vascular surgery consulted by the admitting team, at this time no plans for surgical intervention
-Continue Lovenox 65mg BID with plans to switch to oral anticoagulation. Placed consult to CM to delgado Eliquis, according to report approximate $50/month. Will move forward with plan to discharge on Eliquis 10mg BID for 7 days total high-intensity
therapy, then 5mg BID for at least 3 months. First dose of 10mg Eliquis today in the hospital
-Per prior notes, it seems patient may have had a hypercoaguable workup in childhood. Would recommend follow up with hematology outpatient given new extensive DVT.
Cerebral Palsy
-CT of the Abdomen/Pelvis on 06/08: Urinary bladder is elongated in the craniocaudal dimension and the urinary bladder is in the anterior pelvis. Seminal vesicles are enlarged. These are likely sequela of chronic cerebral palsy.
-Continue outpatient follow up
Bipolar Disorder
-Continue outpatient follow up
-Continue home meds (Depakote, Lorazepam, Paliperidone)
S/p Right [id number]-[id number]
-In childhood due to blood clot, patient with history of negative workup for hypercoagulable state
Anticipated Discharge: Today
Subjective/Interval History
-
Date of Service: June 10, 2025
Patient was resting comfortably in his bed when I arrived. He has no complaints today, and is free of pain. Later, his mother was present who states that normally he moves around the house by crawling as he doesn't want to use his prosthetic at home.
Objective Data
-
Labs:
Laboratory Results
06/09/25 06/10/25
14:00 07:00
WBC Pending
Hgb Pending
Hct Pending
Plt Count Pending
APTT Cancelled
Sodium Pending
Potassium Pending
Chloride Pending
Carbon Dioxide Pending
BUN Pending
Creatinine Pending
Glucose Pending
Calcium Pending
Vital Signs:
Vital Signs
Temp Pulse Resp BP Pulse Ox
98.7 F 108 20 125/86 95
10/09/25 23:00 06/09/25 23:00 06/09/25 23:00 06/09/25 23:00 06/09/25 23:00
Review of Systems
-
History Source: Patient
Constitutional: Denies Fever or Chills
Respiratory: Denies Cough or Trouble Breathing
Cardiac: Denies Chest Pain
Abdomen/GI: Denies Abdominal Pain, Nausea, Vomiting, Diarrhea or Constipated
Musculoskeletal: Denies Joint Pain
Neuro: Denies Dizzy or Lightheadedness
Physical Exam
-
General: Well Developed, Well Nourished, No Apparent Distress and Comfortable
HEENT: Normocephalic and Atraumatic
Respiratory: Clear to Auscultation
Cardiac: Regular Rhythm, S1/S2 and Tachycardic (HR around 105)
Musculoskeletal: No Edema and Other (Right leg status post above knee amputation with well healed scar. Left leg free of rashes or erythema after unwrapping the clara bandages covering it to mid thigh)
Skin: Warm and Dry
Neuro: Awake, Alert and Oriented
Psych: Calm
[2025-06-10 07:26] LABS: Hematocrit 39.7 % (39.0-52.0); Hemoglobin 13.0 g/dL (13.0-18.0); Mean Corp Hgb Conc. 32.7 g/dL (33.0-37.0); Mean Corpuscular Volume 89.6 fL (80.0-94.0); Platelet Count 341 10^3/uL (130-400); Red Cell Dist. Width 12.8 % (11.5-14.5)
[2025-06-10 07:31] VITALS: BP 124/74
[2025-06-10 07:58] LABS: Blood Urea Nitrogen 9 mg/dl (9-20); Calcium 9.5 mg/dl (8.4-10.2); Carbon Dioxide 28 mmol/L (22-30); Chloride 108 mmol/L (98-107); Estimated Creatinine Clearance 121 ml/min; Glucose 95 mg/dl (70-99); Potassium 4.3 mmol/L (3.5-5.1); Sodium 142 mmol/L (135-145); eGFR > 60.00
--- NOTE | 2025-06-10 10:52 | W.DCSUMMARY ---
Discharge Summary
Discharge Data
Date of Admission: 06/08/25
Date of Discharge: 06/10/25
-
Pending Results: No
Hospital Course
Discharging Physician : Dr. Adam
Disposition : Good
Primary care physician : Yohan Bowen
Principal Discharge diagnosis : Extensive Occlusive DVT of the left lower extremity
Chronic Discharge diagnosis : Cerebral Palsy, Bipolar Disorder, History of right BKA, Kyphosis of lower thoracic spine
Hospital Course : This is a 30 y/o male with pmhx of cerebral palsy, bipolar disorder, and history of right above-knee amputation who presented to the ED on 06/08/2025 with swelling and edema of the left lower extremity following a cellulitis
infection that began 2 weeks prior. He had been sedentary since around that same time. Around 06/01/2025 he started oral antibiotic therapy, but the swelling increased so his family brought him to the ED
In the ED, peripheral vascular ultrasound showed extensive, occlusive left lower extremity DVT. CT PE was negative for pulmonary embolism. CT Venogram of the abdomen/pelvis was not able to visualize the pulmonary arteries well, but was negative for
thrombus in places it could visualize. He was started on IV Heparin. Vascular Surgery was consulted, but determined he was not a good candidate for surgical intervention due to anatomical variants as noted below. His Heparin was transitioned to
Lovenox on 06/09, which was transitioned to Eliquis 10mg BID on 06/10. On 06/10 he was found to be medially stable for discharge to home. He was sent home with a prescription for 10mg Eliquis BID for 7 days, with the first dose administered that
morning. He was also given a script for 5mg BID Eliquis to take after completion of the 7 days 10mg dose. He was instructed to follow up with his PCP in less than 1 week, and to follow up with a stationary engineer apprentice for hypercoagulability workup. Before he
was sent home, his family was instructed on how to appropriately apply clara bandage wraps to compress his leg to help with swelling. His outpatient antibiotic was discontinued on discharge.
Important imaging findings :
Peripheral Vascular Ultrasound 06/08: Extensive deep venous thrombosis of the left lower extremity as described. There is also extension of occlusive thrombus in the visualized left external iliac vein.
CT Venogram 06/08: Evaluation for pulmonary embolism is significantly limited by respiratory motion artifact. Even evaluation of the central pulmonary arteries is limited, with no gross evidence for embolism. Trace amount of posterior pleural fluid
bilaterally. Mild dependent atelectasis in the posterior lungs. No evidence of consolidation to suggest pneumonia or infarction. Thrombus involving the left common femoral, proximal femoral, and profunda femoris veins. Thrombus also extends into the
left external iliac vein and into the left internal iliac vein. There is a severely atrophic left common iliac vein as well as the infrarenal IVC. Severely atretic right common femoral, external iliac, and common iliac veins. Normal caliber of the
IVC at the level the renal veins and above, with no evidence for thrombus. Geographic region of decreased density involving the anterior medial segment of the liver on portal venous phase images, most likely a benign perfusion anomaly. No CT
evidence for branch portal vein thrombus. Urinary bladder is elongated in the craniocaudal dimension and the urinary bladder is in the anterior pelvis. Seminal vesicles are enlarged. These are likely sequela of chronic cerebral palsy.
Procedure findings : N/a
Discharge Plan
-
Patient Disposition: Home (Routine Discharge)
Discharge Diagnosis/Procedures: Extensive Occlusive DVT of the left lower extremity
Cerebral Palsy
Bipolar Disorder
History of right BKA
Kyphosis of lower thoracic spine
Condition: Good
Diet: No restrictions
Activity: No restrictions
Driving Restrictions: No driving
Bathing Restrictions: None
Referrals:
Yohan Bowen CRNP [Family Provider, Family Practice] - in less than 1 week
Misha Christensen MD [Active, Hematology / Oncology]
Additional Discharge Medication Instructions: Your antibiotic (Keflex) was continued while you were in the hospital. Please STOP taking upon discharge. Your other home medications may be continued.
Additionally, we are prescribing you an new medication for anticoagulation. Please take 10mg of Eliquis twice daily (Once in the morning, once in the evening) for 7 days total ( 13 more doses). Then, on 06/17/2025 take 5mg twice daily (Once in the
morning, once in the evening).
We recommend that you follow up with a stationary engineer apprentice. We also recommend you follow up with your primary care physician in less than 1 week.
Stop ibuprofen. Take Tylenol for pain
Prescriptions:
New
Eliquis 5 mg Tablet
10 mg PO BID Qty: 27 0RF
Eliquis 5 mg tablet
5 mg PO BID Qty: 60 0RF
Continued
divalproex [Depakote] 250 mg Tablet,Delayed Release (Dr/Ec)
250 mg PO HS
therapeutic multivitamin Tablet
1 tab PO DAILY
lorazepam 0.5 mg Tablet
0.5 mg PO Q48H
lorazepam 0.5 mg Tablet
1 mg PO HS
cholecalciferol (vitamin D3) [Vitamin D3] 25 mcg (1,000 unit) Tablet
25 mcg PO DAILY
paliperidone 3 mg Tablet Extended Release 24hr
6 mg PO HS
Discontinued
cephalexin 500 mg Capsule
500 mg PO QID
Rx Instructions:
for 10 day starting 06/02/25
ibuprofen 400 mg Tablet
400 mg PO DAILYPRN PRN (Reason: mild pain)
Discharge Orders:
Discharge Patient (As Directed); Ordered 06/10/25
Ordered By: Angi Adam
Discharge Date and Time
Discharge Date/Time: 06/10/25 14:40
Print Language: TONGAN
[2025-06-10 11:01] VITALS: BP 124/86; PULSE 117; O2SAT 94
[2025-06-10] MEDS: VITAMIN D3 (cholecalciferol) 25 MCG PO (11:04)
[2025-06-10] MEDS: KEFLEX 500 MG PO (11:04)
[2025-06-10] MEDS: ELIQUIS 10 MG PO (11:04)
[2025-06-10 11:09] VITALS: BP 124/86; PULSE 117; O2SAT 97
--- NOTE | 2025-06-10 13:48 | CM ---
Chart reviewed. Patient will d/c home w/ parents today
Spoke w/ patient's father, agreeable to d/c. IMM verbally reviewed. Confirmed he and his spouse will transport patient home today
No CM needs at this time
Plan: Home, no needs
[2025-06-10] MEDS: KEFLEX PO (14:32)
[2025-06-10 15:00] VITALS: BP 127/71
[2025-06-10 15:39] VITALS: BP 127/71
== END 2025-06-10 14:40 | disposition home or self-care (01) | DRG 300 ==
LOC: 3 WEST ACU 19:59
PROVIDERS: ADMITTING PHYSICIAN Internal Medicine; ATTENDING PHYSICIAN Hospitalist; CONSULT PHYSICIAN Surgery Vascular Surgery; EMERGENCY PHYSICIAN Emergency Medicine; FAMILY PHYSICIAN Nurse Practitioner Family
DX: I82.402 Acute embolism and thrombosis of unspecified deep veins of left lower extremity (principal); L03.116 Cellulitis of left lower limb; G80.8 Other cerebral palsy; F31.9 Bipolar disorder, unspecified; F20.9 Schizophrenia, unspecified; Z89.511 Acquired absence of right leg below knee; M40.209 Unspecified kyphosis, site unspecified
CPT/HCPCS: 71275; 74177; 80048; 80053; 82248; 83735; 85025; 85027; 85610; 85730; 93005; 93971; 96374; 96375; 97162; 97167; 99291; Q9967